=== PATIENT | female | born 1995 | race Caucasian/White ===

== ENCOUNTER → 2024-01-19 | Outpatient (CLI) | LOC: M SOG 08:09 | PROVIDERS: ATTEND Physician Assistant | DX: M54.50 Low back pain, unspecified (principal) ==

== ENCOUNTER → 2024-02-08 | Outpatient (CLI) | payer OTHER | LOC: M PLAIMG 13:27 | PROVIDERS: ATTEND Physician Assistant | DX: M51.26 Other intervertebral disc displacement, lumbar region (principal); M47.816 Spondylosis without myelopathy or radiculopathy, lumbar region; M47.817 Spondylosis without myelopathy or radiculopathy, lumbosacral region; M51.36 Other intervertebral disc degeneration, lumbar region ==